=== PATIENT | female | born 2000 | race Caucasian/White ===

== ENCOUNTER 2020-04-18 00:42 | Outpatient (CLI) | payer OTHER, SELFPAY ==
[2020-04-18 16:46] LABS: SARS-CoV-2 RNA PCR Negative
== END 2020-04-18 00:43 | disposition home or self-care (01) ==
LOC: ANHCOVIDDT 00:43
PROVIDERS: PCP Pediatrics; Visit Provider Internal Medicine Gastroenterology
DX: Z01.818 Encounter for other preprocedural examination (principal); Z11.59 Encounter for screening for other viral diseases
CPT/HCPCS: 87635; C9803; U0003

== ENCOUNTER 2020-04-21 00:59 | Day surgery (SDC) | payer OTHER, SELFPAY ==
[2020-04-16 14:32] VITALS: BMI 25.4
[2020-04-21 06:45] VITALS: BP 106/55; PULSE 87; RESP 16; TEMP 36.7; O2SAT 100
[2020-04-21] MEDS: LACTATED RINGERS 1,000 ML 150 ML IV CONT (06:54)
--- NOTE | 2020-04-21 07:00 | WPDANESEPPF ---
Anes - Initial Pre Proc Eval Procedure: Operation Date: 04/21/20 07:30 Proposed Procedures p Colonoscopy - Liam Jacinto MD Date/Time: 04/21/20 07:00 Surgeon: Liam Jacinto MD Pre Op Diagnosis: Crohn's Disease Patient Data Age: 19 Gender: F Height: 5 ft 1 in Weight: 61.5 kg Last Vital Signs Temp 36.7 C 04/21/20 06:45 Pulse 87 04/21/20 06:45 Resp 16 04/21/20 06:45 BP 106/55 L 04/21/20 06:45 Pulse Ox 100 04/21/20 06:45 Allergies Allergy/AdvReac Type Severity Reaction Status Date / Time amoxicillin [From Augmentin] AdvReac Intermediate Other Verified 04/21/20 06:34 clavulanic acid AdvReac Intermediate Other Verified 04/21/20 06:39 [From Augmentin] Home Medications Medication Instructions Recorded Confirmed Type No Home Medications 04/16/20 04/16/20 History Patient hx anesthesia problems: none Family hx anesthesia problems: none [facility] Past Medical History Medical History (Updated 04/21/20 @ 07:01 by Lamine Serna MD) Asthma Crohn's colitis Anes - Eval Final PreProcedure Day of Procedure 04/21/20 07:00 Patient weight: normal Heart: regular rate and rhythm Lungs: clear to auscultation Airway: Mallampati scale class 1 Neurological: alert and oriented Last oral intake: >/= 8 hours ASA classification: II Emergent: no Anesthetic plan: proceed Anesthesia type and monitoring: general GIVS and standard monitoring Informed Consent: The patient's anesthetic plan and its attendant risks and benefits were discussed with the patient/family/POA. Questions were solicited and answers provided to the satisfaction of the patient/family/POA.
--- NOTE | 2020-04-21 07:16 | PM.HPGS ---
History of Present Illness History of Present Illness Consent: Risks, benefits, and alternatives have been discussed and questions answered. Patient agrees to proceed with procedure. Chief complaint: Crohn's Disease Narrative: Elif Collins is a 19 year old female With postprandial cramping and lower abdominal pain accompanied by episodes of diarrhea. Serology for inflammatory bowel disease was positive [facility] Past Medical History Medical History Asthma Crohn's colitis Meds Home Medications and Allergies Home Medications Medication Instructions Recorded Confirmed Type No Home Medications 04/16/20 04/16/20 History Allergies Allergy/AdvReac Type Severity Reaction Status Date / Time amoxicillin [From Augmentin] AdvReac Intermediate Other Verified 04/21/20 06:34 clavulanic acid AdvReac Intermediate Other Verified 04/21/20 06:39 [From Augmentin] Vital Signs Vital Signs - 24 hr 04/21/20 06:45 Temperature 36.7 C Pulse Rate 87 Respiratory Rate 16 Blood Pressure 106/55 L Pulse Oximetry 100 Exam Resp: Auscultation: clear to auscultation bilaterally Cardio: Rate: regular rate Rhythm: regular rhythm GI: GI Palp: Yes Soft to palpation and No Tenderness to palpation present (GI) Assessment and Plan Assessment and plan (1) Change in bowel habits: Code(s): R19.4 - Change in bowel habit Status: Acute Assessment and Plan: Colonoscopy with possible biopsy or polypectomy or cautery or injection of substances.
[2020-04-21 07:40] VITALS: BP 90/56; PULSE 84; RESP 17; O2SAT 99
[2020-04-21 07:50] VITALS: BP 101/63; RESP 20; O2SAT 100
[2020-04-21 08:00] VITALS: BP 111/74; PULSE 73; RESP 20; O2SAT 100
== END 2020-04-21 08:15 | disposition home or self-care (01) ==
PROVIDERS: PCP Pediatrics; Visit Provider Internal Medicine Gastroenterology
PROC: 0DJD8ZZ Inspection of Lower Intestinal Tract, Via Natural or Artificial Opening Endoscopic (ICD-10-PCS; CPT 45378; principal; 2020-04-21 07:30)
DX: R19.4 Change in bowel habit (principal); K58.9 Irritable bowel syndrome, unspecified
CPT/HCPCS: 45380; 88305; J2001; J2704; J7120

== ENCOUNTER 2021-01-22 09:41 | Outpatient (CLI) | payer OTHER, SELFPAY ==
[2021-01-22 10:19] LABS: Alanine Aminotransferase 10 U/L (4-35); Albumin Level 4.3 g/dL (3.5-5.1); Alkaline Phosphatase 61 U/L (38-126); Anion Gap 7 mmol/L (8-16); Aspartate Amino Transferase 25 U/L (14-36); Bilirubin,Total 0.5 mg/dL (0.2-1.3); Blood Urea Nitrogen 8 mg/dL (7-17); Calcium 9.4 mg/dL (8.4-10.2); Carbon Dioxide 28 mmol/L (22-30); Chloride 105 mmol/L (98-107); Estimated Glomerular Filt Rate > 60; Glucose 93 mg/dL (65-105); Potassium 4.4 mmol/L (3.4-5.0); Sodium 140 mmol/L (137-145)
[2021-01-22 10:43] LABS: Erythrocyte Sedimentation Rate 18 mm/hr (0-20)
[2021-01-25 13:40] LABS: Tissue Transglutaminase IgG Ab 5 U/mL (<6)
[2021-01-26 11:53] LABS: Tissue Transglutaminase IgA Ab 1 U/mL (<4)
== END 2021-01-22 09:42 | disposition home or self-care (01) ==
PROVIDERS: PCP Pediatrics; Visit Provider Internal Medicine Gastroenterology
DX: R10.30 Lower abdominal pain, unspecified (principal); R19.4 Change in bowel habit; R19.7 Diarrhea, unspecified
CPT/HCPCS: 36415; 80053; 83516; 85652; 86038; 86039

== ENCOUNTER 2021-11-26 10:24 | Outpatient (CLI) | payer OTHER, SELFPAY ==
[2021-11-26 11:08] LABS: Hematocrit 41.6 % (37.0-47.0); Mean Corpuscular HGB Conc 33.7 g/dl (32-36); Mean Corpuscular Hemoglobin 30.8 pg (26-34); Mean Corpuscular Volume 91.4 fl (80-100); Mean Platelet Volume 9.7 fl (7.4-10.4); Platelet Count Result 235 k/mm3 (150-375); Red Blood Count 4.55 M/mm3 (4.2-5.4); Red Cell Distribution Width 13.2 % (11.5-14.5); White Blood Count 6.3 K/mm3 (4.5-10.0)
[2021-11-26 11:24] LABS: Alanine Aminotransferase 20 U/L (4-35); Albumin Level 4.8 g/dL (3.5-5.1); Alkaline Phosphatase 76 U/L (38-126); Anion Gap 10 mmol/L (8-16); Aspartate Amino Transferase 34 U/L (14-36); Bilirubin,Total 0.5 mg/dL (0.2-1.3); Blood Urea Nitrogen 10 mg/dL (7-17); CRP 0.6 mg/dL (<1.0); Calcium 9.3 mg/dL (8.4-10.2); Carbon Dioxide 24 mmol/L (22-30); Chloride 105 mmol/L (98-107); Estimated Glomerular Filt Rate > 60; Glucose 92 mg/dL (65-110); Potassium 4.2 mmol/L (3.4-5.0); Sodium 139 mmol/L (137-145)
[2021-11-26 11:30] LABS: Complement C3 113 mg/dL (88-165); Rheumatoid Factor < 8.6 IU/ML (<12)
[2021-11-26 14:43] LABS: Erythrocyte Sedimentation Rate 14 mm/hr (0-20)
[2021-11-30 18:29] LABS: SM Antibody <1.0; SM/RNP Antibody <1.0; SS-A <1.0; SS-B <1.0
[2021-11-30 23:02] LABS: Anti Cyclic Citrullinated Pept <16 Units (<20)
[2021-12-01 02:35] LABS: Lupus dRVVT 1:1 Mix Interpreta Not Indicated; Lupus dRVVT Screen 36 sec (<=45); PTT-LA Screen 37 sec (<=40)
[2021-12-01 04:02] LABS: Anti Cardio Antibody IgM <2.0 MPL-U/mL (<20.0); Anti Cardiolipin Antibody IgA <2.0 APL-U/mL (<20.0); Anti Cardiolipin Antibody IgG <2.0 GPL-U/mL (<20.0)
== END 2021-11-26 10:25 | disposition home or self-care (01) ==
LOC: ANHLAB 10:28
PROVIDERS: Visit Provider Internal Medicine
DX: R76.8 Other specified abnormal immunological findings in serum (principal); M19.90 Unspecified osteoarthritis, unspecified site
CPT/HCPCS: 36415; 80053; 85027; 85613; 85652; 85730; 86140; 86146; 86147; 86160; 86200; 86225; 86235; 86430